=== PATIENT | male | born 1990 | race Caucasian/White ===

== ENCOUNTER 2021-09-07 09:53 | Inpatient (IN) | payer OTHER ==
[2021-09-07 11:06] VITALS: BMI 25.7
[2021-09-07] MEDS ORDERED: LOPERAMIDE HCL 2 MG CAPSULE PO PRN (11:26)
[2021-09-07] MEDS ORDERED: ACETAMINOPHEN 325 MG TABLET (FP) PO PRN ×2 (11:26)
[2021-09-07] MEDS ORDERED: MAG HYDROX/AL HYDROX/SIMETH 30 ML UNIT-DOSE CUP PO PRN (11:26)
[2021-09-07] MEDS ORDERED: NALOXONE HCL (KLOXXADO) 8 MG SPRAY NS PRN (11:26)
[2021-09-07] MEDS ORDERED: ONDANSETRON *ODT* 4 MG TABLET SL PRN (11:26)
[2021-09-07] MEDS ORDERED: MAGNESIUM CITRATE 300 ML BOTTLE PO PRN (11:26)
[2021-09-07] MEDS ORDERED: MAGNESIUM HYDROX 2400MG/30ML ORAL SUSPENSION 30 ML CUP PO PRN (11:26)
[2021-09-07] MEDS ORDERED: DICYCLOMINE HCL 10 MG CAPSULE PO PRN (11:26)
[2021-09-07] MEDS ORDERED: BISMUTH SUBSALICYLATE 262 MG/15 ML BTL PO PRN (11:26)
[2021-09-07] MEDS ORDERED: BENZOCAINE/MENTHOL (CHLORASEPTIC ) LOZENGE MM PRN (11:26)
[2021-09-07] MEDS ORDERED: NICOTINE 10 MG CARTRIDGE (INHALER) IH PRN (11:26)
[2021-09-07] MEDS ORDERED: diazePAM 5 MG TABLET ONE (12:24)
[2021-09-07] MEDS ORDERED: IBUPROFEN 400 MG TABLET (FP) PO ONE (12:24)
[2021-09-07] MEDS: IBUPROFEN 400 MG TABLET (FP) PO PRN ×2 (12:27→23:37)
[2021-09-07] MEDS: diazePAM 5 MG TABLET PO PRN ×2 (12:28→20:33)
[2021-09-07] MEDS: hydrOXYzine PAMOATE 25 MG CAPSULE (FP) PO SCH ×3 (13:07→23:45)
[2021-09-07] MEDS: GABAPENTIN 300 MG CAPSULE PO SCH ×2 (15:13→22:47)
[2021-09-07] MEDS: diazePAM 5 MG TABLET PO SCH ×2 (17:56→22:48)
[2021-09-07] MEDS: THIAMINE HCL 100 MG TABLET (FP) PO SCH (22:45)
[2021-09-07] MEDS: QUEtiapine FUMARATE 100 MG TABLET (FP) PO SCH (22:47)
[2021-09-07] MEDS: MELATONIN 5 MG TABLETS PO SCH (23:44)
[2021-09-08] MEDS: hydrOXYzine PAMOATE 25 MG CAPSULE (FP) PO SCH ×5 (05:23→22:15)
[2021-09-08] MEDS: GABAPENTIN 300 MG CAPSULE PO SCH ×3 (05:23→22:15)
[2021-09-08] MEDS: diazePAM 5 MG TABLET PO SCH (05:24)
[2021-09-08] MEDS: LORazepam 2 MG TABLET PO SCH ×3 (10:03→22:15)
[2021-09-08] MEDS: METHOCARBAMOL 500 MG TABLET PO PRN ×3 (10:03→22:15)
[2021-09-08] MEDS: PRENATAL VITAMINS W/ FOLIC ACID TABLET (FP) PO SCH (10:04)
[2021-09-08 10:55] LABS: HEMATOCRIT 40.9 % (35.4-49); HEMOGLOBIN 13.6 GM/dL (11.7-16.9); MCH 30.9 pg (25.7-33.7); MCHC 33.3 g/dl (32.0-35.9); MEAN CELL VOLUME 92.9 fl (80-96); MEAN PLT VOLUME 9.4 fl (7.5-11.1); PLATELET COUNT 216 10^3/uL (134-434); RDW 13.2 % (11.9-15.9); WHITE BLOOD COUNT 5.1 K/mm3 (4.0-10.0)
[2021-09-08 10:57] LABS: CALCIUM 8.9 mg/dL (8.5-10.1)
[2021-09-08 10:58] LABS: ALBUMIN 3.8 g/dl (3.4-5.0); BLOOD UREA NITROGEN 8.3 mg/dL (7-18)
[2021-09-08 11:01] LABS: CREATININE 0.8 mg/dL (0.55-1.3)
[2021-09-08 11:03] LABS: BILIRUBIN,TOTAL 0.4 mg/dL (0.2-1); TOT PROT 7.2 g/dl (6.4-8.2)
[2021-09-08] MEDS: IBUPROFEN 600 MG TABLET (FP) PO PRN ×2 (12:34→18:30)
[2021-09-08] MEDS: LORazepam 1 MG TABLET PO PRN ×2 (13:20→19:42)
[2021-09-08] MEDS ORDERED: LIDOCAINE VISCOUS 2% ORAL/TOP 15 ML UNIT-DOSE CUP MM PRN (16:59)
[2021-09-08] MEDS: MELATONIN 5 MG TABLETS PO SCH (22:14)
[2021-09-08] MEDS: THIAMINE HCL 100 MG TABLET (FP) PO SCH (22:14)
[2021-09-08] MEDS: QUEtiapine FUMARATE 100 MG TABLET (FP) PO SCH (22:15)
[2021-09-09] MEDS: LORazepam 1 MG TABLET PO PRN ×3 (03:05→19:14)
[2021-09-09] MEDS: IBUPROFEN 400 MG TABLET (FP) PO PRN (04:47)
[2021-09-09] MEDS: LORazepam 2 MG TABLET PO SCH ×4 (05:26→22:12)
[2021-09-09] MEDS: hydrOXYzine PAMOATE 25 MG CAPSULE (FP) PO SCH ×5 (05:27→22:12)
[2021-09-09] MEDS: GABAPENTIN 300 MG CAPSULE PO SCH ×3 (05:27→22:12)
[2021-09-09] MEDS ORDERED: diazePAM 5 MG TABLET PO SCH (06:00)
[2021-09-09] MEDS: amLODIPine BESYLATE 10 MG TABLET (FP) PO SCH (10:02)
[2021-09-09] MEDS: METHOCARBAMOL 500 MG TABLET PO PRN (10:02)
[2021-09-09] MEDS: PRENATAL VITAMINS W/ FOLIC ACID TABLET (FP) PO SCH (10:02)
[2021-09-09] MEDS: IBUPROFEN 600 MG TABLET (FP) PO PRN ×2 (10:06→19:14)
[2021-09-09] MEDS: BACITRACIN 0.9 GM PACKET TP SCH ×2 (11:34→22:12)
[2021-09-09] MEDS: THIAMINE HCL 100 MG TABLET (FP) PO SCH (22:12)
[2021-09-09] MEDS: QUEtiapine FUMARATE 100 MG TABLET (FP) PO SCH (23:37)
[2021-09-09] MEDS: MELATONIN 5 MG TABLETS PO SCH (23:46)
[2021-09-10] MEDS: LORazepam 1 MG TABLET PO PRN ×3 (02:33→18:53)
[2021-09-10] MEDS: hydrOXYzine PAMOATE 25 MG CAPSULE (FP) PO SCH ×5 (05:20→22:39)
[2021-09-10] MEDS: LORazepam 1 MG TABLET PO SCH ×4 (05:20→22:40)
[2021-09-10] MEDS: GABAPENTIN 300 MG CAPSULE PO SCH ×3 (05:20→22:39)
[2021-09-10] MEDS ORDERED: diazePAM 5 MG TABLET PO SCH (06:00)
[2021-09-10] MEDS ORDERED: COLLOIDAL OATMEAL 1 BAR EACH TP PRN (10:14)
[2021-09-10] MEDS: PRENATAL VITAMINS W/ FOLIC ACID TABLET (FP) PO SCH (10:22)
[2021-09-10] MEDS: METHOCARBAMOL 500 MG TABLET PO PRN (10:22)
[2021-09-10] MEDS: BACITRACIN 0.9 GM PACKET TP SCH ×2 (10:22→22:39)
[2021-09-10] MEDS: amLODIPine BESYLATE 10 MG TABLET (FP) PO SCH (10:22)
[2021-09-10] MEDS: IBUPROFEN 600 MG TABLET (FP) PO PRN ×2 (10:22→22:42)
[2021-09-10] MEDS: THIAMINE HCL 100 MG TABLET (FP) PO SCH (22:39)
[2021-09-10] MEDS: MELATONIN 5 MG TABLETS PO SCH (22:41)
[2021-09-10] MEDS: QUEtiapine FUMARATE 100 MG TABLET (FP) PO SCH (23:05)
[2021-09-11] MEDS ORDERED: LORazepam 0.5 MG TABLET PO PRN
[2021-09-11] MEDS ORDERED: diazePAM 5 MG TABLET PO ONE (06:00)
[2021-09-11] MEDS: LORazepam 0.5 MG TABLET PO SCH ×4 (06:01→23:00)
[2021-09-11] MEDS: hydrOXYzine PAMOATE 25 MG CAPSULE (FP) PO SCH ×5 (06:01→23:00)
[2021-09-11] MEDS: GABAPENTIN 300 MG CAPSULE PO SCH ×3 (06:01→23:00)
[2021-09-11] MEDS: BACITRACIN 0.9 GM PACKET TP SCH ×2 (10:27→23:01)
[2021-09-11] MEDS: PRENATAL VITAMINS W/ FOLIC ACID TABLET (FP) PO SCH (10:27)
[2021-09-11] MEDS: amLODIPine BESYLATE 10 MG TABLET (FP) PO SCH (10:27)
[2021-09-11] MEDS: METHOCARBAMOL 500 MG TABLET PO PRN ×2 (10:27→18:28)
[2021-09-11] MEDS: IBUPROFEN 600 MG TABLET (FP) PO PRN (14:19)
[2021-09-11] MEDS: QUEtiapine FUMARATE 100 MG TABLET (FP) PO SCH (23:00)
[2021-09-11] MEDS: MELATONIN 5 MG TABLETS PO SCH (23:01)
[2021-09-11] MEDS: THIAMINE HCL 100 MG TABLET (FP) PO SCH (23:01)
[2021-09-12] MEDS ORDERED: LORazepam 0.5 MG TABLET PO ONE (05:00)
[2021-09-12] MEDS: hydrOXYzine PAMOATE 25 MG CAPSULE (FP) PO SCH ×2 (06:10→09:00)
[2021-09-12] MEDS: GABAPENTIN 300 MG CAPSULE PO SCH (06:10)
[2021-09-12] MEDS: BACITRACIN 0.9 GM PACKET TP SCH (09:00)
[2021-09-12] MEDS: PRENATAL VITAMINS W/ FOLIC ACID TABLET (FP) PO SCH (09:00)
[2021-09-12] MEDS: amLODIPine BESYLATE 10 MG TABLET (FP) PO SCH (09:00)
[2021-09-12 09:07] VITALS: BP 128/76; PULSE 88; TEMP 97.8
== END 2021-09-12 09:10 | disposition home or self-care (01) | DRG 774 ==
LOC: YASAS 09:53 → Y6N 12:23
PROVIDERS: ADMIT Allergy & Immunology; ATTEND Surgery
PROC: HZ2ZZZZ Detoxification Services for Substance Abuse Treatment (ICD-10-PCS; principal; 2021-09-07)
DX: F13.230 Sedative, hypnotic or anxiolytic dependence with withdrawal, uncomplicated (principal); F14.20 Cocaine dependence, uncomplicated; F10.20 Alcohol dependence, uncomplicated; F12.20 Cannabis dependence, uncomplicated; F17.210 Nicotine dependence, cigarettes, uncomplicated; F19.282 Other psychoactive substance dependence with psychoactive substance-induced sleep disorder; F19.280 Other psychoactive substance dependence with psychoactive substance-induced anxiety disorder; F19.24 Other psychoactive substance dependence with psychoactive substance-induced mood disorder; F41.8 Other specified anxiety disorders; F32.A Depression, unspecified; Z88.8 Allergy status to other drugs, medicaments and biological substances
CPT/HCPCS: 36415; 80053; 85027; 86780; 87811; C9803-CS; U0003; U0005